=== PATIENT | female | born 1990 | race Caucasian/White ===

== ENCOUNTER 2018-01-06 09:08 | Emergency (ER) | payer MEDICAID ==
[2018-01-06 09:08] VITALS: BMI 22.6
[2018-01-06 10:05] VITALS: BP 107/68; PULSE 89; RESP 19; TEMP 98; O2SAT 100
--- NOTE | 2018-01-06 10:07 | ED PDOC ---
HPI: Skin/Bite Injury Time Seen by Provider: 01/06/18 09:10 Chief Complaint (Nursing): Abnormal Skin Integrity Chief Complaint (Provider): Abnormal Skin Integrity History Per: Patient History/Exam Limitations: no limitations Onset/Duration Of Symptoms: Days (x2) Current Symptoms Are (Timing): Still Present Additional Complaint(s): 27 year old female with medical history of Vcylg-Wkuuumduz-Sucpf syndrome and pulmonary embolism, presents to the emergency department with a complaint of right-sided groin lump ongoing for 2 days. Denied any groin pain, discharge, vomiting, fever, chills or malaise. Patient reported that she feels lump is getting bigger since onset. PMD: none provided Past Medical History Reviewed: Historical Data, Nursing Documentation, Vital Signs Vital Signs: Last Vital Signs Temp 98 F 01/06/18 10:02 Pulse 89 01/06/18 10:02 Resp 19 01/06/18 10:02 BP 107/68 01/06/18 10:02 Pulse Ox 100 01/06/18 12:17 - Medical History PMH: Pulmonary Embolism Other PMH: Kdgql-Huvbjzdfy-Sfjah syndrome - Surgical History Surgical History: Denies: No Surg Hx Other surgeries: tubal ligation - Family History Family History: States: Unknown Family Hx - Social History Current smoker - smoking cessation education provided: No Alcohol: None Drugs: Denies - Home Medications Home Medications: Ambulatory Orders Medication Instructions Recorded Rivaroxaban [Xarelto] 15 mg PO BID #28 tab 05/26/15 Rivaroxaban [Xarelto] 20 mg PO DAILY #0 tab 05/26/15 Fluticasone Propionate [Flonase] 1 spr RANI BID #1 bottle 06/18/15 Guaifenesin/Dextromethorphan 1 - 2 ter PO Q12 #20 ter 06/18/15 [Mucinex Dm 30 mg-600 mg] - Allergies Allergies/Adverse Reactions: Allergies Allergy/AdvReac Type Severity Reaction Status Date / Time No Known Allergies Allergy Verified 05/25/15 13:36 Review of Systems ROS Statement: Except As Marked, All Systems Reviewed And Found Negative Constitutional: Negative for: Fever, Chills, Malaise Gastrointestinal: Negative for: Vomiting Genitourinary Female: Positive for: Other (right-sided groin lump). Negative for: Pelvic Pain (or abscess) Physical Exam - Reviewed Nursing Documentation Reviewed: Yes Vital Signs Reviewed: Yes - Physical Exam Appears: Positive for: Well, Non-toxic, No Acute Distress Head Exam: Positive for: ATRAUMATIC, NORMAL INSPECTION, NORMOCEPHALIC Skin: Positive for: Normal Color Eye Exam: Positive for: Normal appearance ENT: Positive for: Normal ENT Inspection Neck: Positive for: Normal Cardiovascular/Chest: Positive for: Regular Rate, Rhythm, Chest Non Tender Respiratory: Positive for: Normal Breath Sounds. Negative for: Decreased Breath Sounds, Respiratory Distress Gastrointestinal/Abdominal: Positive for: Soft Extremity: Positive for: Normal ROM (upper/lower). Negative for: Pedal Edema ( bilateral), Calf Tenderness (bilateral) Lymphatic: Positive for: Adenopathy (tiny lymph node on right-sided groin). Negative for: Inguinal Node Tenderness (right-sided), Other (no surrounding erythema, fluctuance or edema) Neurologic/Psych: Positive for: Alert (x3), Oriented - ECG O2 Sat by Pulse Oximetry: 100 (RA) Pulse Ox Interpretation: Normal Medical Decision Making Medical Decision Making: Initial Impression: Inguinal lymphadenopathy Initial Plan: * Urine * BETA-HCG ____ Time: 1200 --Negative for . Time: 1206 --Upon provider reevaluation, patient is medically stable and requires no further treatment in the ED at this time. Patient will be discharged home. Counseling was provided and all questions were answered regarding diagnosis and need for follow up with PMD in 2 days for re-evaluation of lymph node. There is agreement to discharge plan. Return if symptoms persist or worsen. Clinical Impression: Lymph node enlargement Scribe Attestation: Documented by Kay Hong, acting as a scribe for Bozena Moreno MD. Provider Scribe Attestation: All medical record entries made by the Scribe were at my direction and personally dictated by me. I have reviewed the chart and agree that the record accurately reflects my personal performance of the history, physical exam, medical decision making, and the department course for this patient. I have also personally directed, reviewed, and agree with the discharge instructions and disposition. Disposition - Clinical Impression Clinical Impression: Lymph node enlargement - Patient ED Disposition Is Patient to be Admitted: No Counseled Patient/Family Regarding: Studies Performed, Diagnosis, Need For Followup - Disposition Disposition: Routine/Home Disposition Time: 11:06 Condition: IMPROVED Additional Instructions: follow up with your primary doctor in 2 days for reevaluation for lymph node evaluation/workup versus lipoma return to the ED immediately for any fever or any concerning or worsening symptoms Forms: [employer] (Tanzanian)
== END 2018-01-06 12:13 | disposition home or self-care (01) ==
LOC: H.ER 09:08
DX: R59.9 Enlarged lymph nodes, unspecified (principal)

== ENCOUNTER 2018-03-21 18:06 | Emergency (ER) | payer MEDICAID ==
[2018-03-21 18:06] VITALS: BMI 22.6
[2018-03-21] MEDS ORDERED: Iohexol 240 (50 ml) PO ONE (19:16)
[2018-03-21] MEDS ORDERED: Sodium Chloride 0.9% 1,000 ML IV STA (19:18)
[2018-03-21 19:39] LABS: BASO % 0.5 % (0.0-2.0); EOS # 0.1 K/uL (0.0-0.7); EOS % 1.4 % (0.0-4.0); LYMPH # 1.5 K/uL (1.0-4.3); LYMPH % 29.3 % (20.0-40.0); MEAN CELL VOLUME 91.3 fl (81.0-99.0); MEAN CORPUSCULAR HEMOGLOBIN 32.3 pg (27.0-31.0); MEAN CORPUSCULAR HGB CONC 35.4 g/dL (33.0-37.0); MONO # 0.8 K/uL (0.0-0.8); NEUT # 2.8 K/uL (1.8-7.0); NEUT % 53.7 % (50.0-75.0); RBC 4.34 Mil/uL (3.80-5.20); RED CELL DISTRIBUTION WIDTH 12.8 % (11.5-14.5); WHITE BLOOD COUNT 5.1 K/uL (4.8-10.8)
[2018-03-21 19:52] LABS: ALB/GLOB RATIO 1.3 (1.0-2.1); ALBUMIN 4.1 g/dL (3.5-5.0); ALT/SGPT 43 U/L (9-52); AST/SGOT 37 U/L (14-36); BLOOD UREA NITROGEN 11 mg/dl (7-17); CALCIUM 8.7 mg/dL (8.4-10.2); GFR AFRICAN-AMERICAN > 60; GFR NON-AFRICAN AMERICAN > 60
[2018-03-21 20:38] LABS: MONO % 15.1 % (0.0-10.0)
--- NOTE | 2018-03-21 21:09 | ED PDOC ---
HPI: Abdomen Time Seen by Provider: 03/21/18 19:14 Chief Complaint (Nursing): Abdominal Pain Chief Complaint (Provider): Abdominal pain, RLQ History Per: Patient Past Medical History Vital Signs: Last Vital Signs Temp 98.0 F 03/21/18 18:15 Pulse 98 H 03/21/18 18:15 Resp 16 03/21/18 18:15 BP 134/86 03/21/18 18:15 Pulse Ox 99 03/21/18 18:15 - Medical History PMH: Pulmonary Embolism - Family History Family History: States: Unknown Family Hx - Home Medications Home Medications: Ambulatory Orders Medication Instructions Recorded Rivaroxaban [Xarelto] 15 mg PO BID #28 tab 05/26/15 Rivaroxaban [Xarelto] 20 mg PO DAILY #0 tab 05/26/15 Fluticasone Propionate [Flonase] 1 spr RANI BID #1 bottle 06/18/15 Guaifenesin/Dextromethorphan 1 - 2 ter PO Q12 #20 ter 06/18/15 [Mucinex Dm 30 mg-600 mg] - Allergies Allergies/Adverse Reactions: Allergies Allergy/AdvReac Type Severity Reaction Status Date / Time No Known Allergies Allergy Verified 05/25/15 13:36 - Laboratory Results Result Diagrams: 03/21/18 19:36 03/21/18 19:36 - ECG O2 Sat by Pulse Oximetry: 99 Medical Decision Making Medical Decision Making: Endorsed pending CT. Disposition - Disposition Condition: STABLE
[2018-03-21 21:10] LABS: SQUAMOUS EPITHIAL < 1 /hpf (0-5); URINE BACTERIA RARE (<OCC); URINE BILIRUBIN NEGATIVE (NEGATIVE); URINE BLOOD NEGATIVE (NEGATIVE); URINE CLARITY CLEAR (Clear); URINE COLOR STRAW (YELLOW); URINE GLUCOSE (UA) NEG (Normal); URINE LEUKOCYTE ESTERASE NEG Leu/uL (Negative); URINE PROTEIN NEGATIVE (NEGATIVE); URINE UROBILINOGEN 0.2-1.0 mg/dL (0.2-1.0)
[2018-03-21] MEDS ORDERED: Iohexol 300 100 ML IJ ONE (22:08)
[2018-03-21] MEDS ORDERED: Sodium Chloride 0.9% 50 ML IV ONE (22:09)
--- NOTE | 2018-03-21 23:25 | CT ---
EXAM: CT Abdomen and Pelvis With Intravenous Contrast EXAM DATE/TIME: 03/21/2018 7:17 PM CLINICAL HISTORY: 27 years old, female; Pain; Abdominal pain; Localized; Right lower quadrant (rlq); Prior surgery; Surgery date: 6+ months; Surgery type: Tubal ligation; Additional info: Abdominal pain, central radiating to rlq TECHNIQUE: Axial computed tomography images of the abdomen and pelvis with intravenous contrast. All CT scans at this facility use one or more dose reduction techniques, viz.: automated exposure control; ma/kV adjustment per patient size (including targeted exams where dose is matched to indication; i.e. head); or iterative reconstruction technique. Coronal and sagittal reformatted images were created and reviewed. CONTRAST: 90 mL of omnipaque 300 administered intravenously. COMPARISON: No relevant prior studies available. FINDINGS: The liver, spleen, pancreas are normal. No gallstones. There is a right extrarenal pelvis. Questionable trace right perinephric stranding. There is under distention of the urinary bladder limiting accurate evaluation for wall thickness. Correlation with urinalysis if there is concern for cystitis. The bowel appears normal. A normal appendix is identified images 101 through 107, coronal images 35 through 40. Slight prominence of the lower uterine segment/cervix. Recommend ensuring patient is up to date on Pap smears. Bilateral ovarian follicles are present Prominent vessels in the pelvis greater on the left raising the possibility of pelvic congestion syndrome. Small amount of free fluid in the pelvis. No aortic aneurysm or dissection. IMPRESSION: Questionable trace right perinephric stranding. Recommend correlation with urinalysis to exclude acute infectious/inflammatory process if clinically indicated.
--- NOTE | 2018-03-22 00:25 | ED PDOC ---
- Laboratory Results Result Diagrams: 03/21/18 19:36 03/21/18 19:36 - ECG O2 Sat by Pulse Oximetry: 99 Medical Decision Making Medical Decision Making: Case endorsed to me from FELISA Teresa pending labs, CT at 2100. CBC wnl CMP wnl Uhcg (-) UA (-) CT A/P : FINDINGS: The liver, spleen, pancreas are normal. No gallstones. There is a right extrarenal pelvis. Questionable trace right perinephric stranding. There is under distention of the urinary bladder limiting accurate evaluation for wall thickness. Correlation with urinalysis if there is concern for cystitis. The bowel appears normal. A normal appendix is identified images 101 through 107, coronal images 35 through 40. Slight prominence of the lower uterine segment/cervix. Recommend ensuring patient is up to date on Pap smears. Bilateral ovarian follicles are present Prominent vessels in the pelvis greater on the left raising the possibility of pelvic congestion syndrome. Small amount of free fluid in the pelvis. No aortic aneurysm or dissection. IMPRESSION: Questionable trace right perinephric stranding. Recommend correlation with urinalysis to exclude acute infectious/inflammatory process if clinically indicated. Dictated By: Susana Tariq MD Dictated Date/Time: 03/21/18 1601 On re-evaluation, patient reports improvement of symptoms, denies any abdominal pain, states that she is now having diarrhea. She states that her symptoms started after she went out to eat, at first with some nausea and vague abdominal pain and now with diarrhea. On exam, patient remains AAOx3, in no acute distress. Lungs clear to auscultation, cardiac RRR, abdomen soft, non- tender with no guarding, repeat neuro exam shows no focal findings. VS T 98.3 P 64 BP 102/57 R 18 O2 sat 100%RA. Diagnostic results d/w the patient in great detail. Diagnosis of gastroenteritis d/w the patient. Based on history, exam and diagnostic results, plan will be for outpatient follow up. Patient instructed to follow-up with pmd in 1-2 days without fail. Advised to take medication as prescribed. Return to the emergency room at any time for any new or worsening symptoms. Patient states she fully agrees with and understands discharge instructions. States that she agrees with the plan and disposition. Verbalized and repeated discharge instructions and plan. I have given the patient opportunity to ask any additional questions. Disposition Counseled Patient/Family Regarding: Studies Performed, Diagnosis, Need For Followup, Rx Given - Clinical Impression Clinical Impression: Acute gastroenteritis, Abdominal pain - POA Present On Arrival: None - Disposition Disposition: Routine/Home Disposition Time: 01:00 Condition: IMPROVED Additional Instructions: Thank you for letting us take care of you today. You were treated for abdominal pain, acute gastroenteritis. The emergency medical care you received today was directed at your acute symptoms. If you were prescribed any medication, please fill it and take as directed. It may take several days for your symptoms to resolve. Return to the Emergency Department if your symptoms worsen, do not improve, or if you have any other problems. Please contact your doctor in 2 days for re-evaluation and follow up / or call one of the physicians/clinics you have been referred to that are listed on the Patient Visit Information form that is included in your discharge packet. Bring any paperwork you were given at discharge with you along with any medications you are taking to your follow up visit. Our treatment cannot replace ongoing medical care by a primary care provider (PCP) outside of the emergency department. Thank you for allowing the [facility] team to be part of your care today. 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
[2018-03-22 01:31] VITALS: BP 102/57; PULSE 64; RESP 18; TEMP 98.3
[2018-03-22 04:05] VITALS: O2SAT 99
== END 2018-03-22 01:30 | disposition home or self-care (01) ==
LOC: H.ER 18:06
DX: K52.9 Noninfective gastroenteritis and colitis, unspecified (principal); Z86.711 Personal history of pulmonary embolism
CPT/HCPCS: 74177; 80053; 81003; 81025; 85025; 87086; 96360; 99283; J7040; Q9966; Q9967

== ENCOUNTER 2018-12-26 07:47 | Emergency (ER) | payer MEDICAID ==
[2018-12-26 07:49] VITALS: BMI 23.3
[2018-12-26 07:51] VITALS: TEMP 98.4
--- NOTE | 2018-12-26 09:23 | ED PDOC ---
HPI: CCC, URI, Sore Throat Time Seen by Provider: 12/26/18 08:31 Chief Complaint (Nursing): ENT Problem Chief Complaint (Provider): Throat pain History Per: Patient History/Exam Limitations: no limitations Current Symptoms Are (Timing): Still Present Location Of Pain: Throat Associated Symptoms: Sore Throat Ear Symptoms: Right: Ear Pain Additional History Per: Patient Additional Complaint(s): 28yo female otherwise well, comes to ER with complaints of sore throat x 2 days. Patient also reports persistent cough for the past month. She reports overnight, she had pain to the right side of the throat, radiating to her right ear. Did not take medication for pain. No additional complaints. PMD: Dr. Briggs Past Medical History Reviewed: Historical Data, Nursing Documentation, Vital Signs Vital Signs: Last Vital Signs Temp 98.4 F 12/26/18 07:49 Pulse 91 H 12/26/18 07:49 Resp 16 12/26/18 07:49 BP 108/69 12/26/18 07:49 Pulse Ox 98 12/26/18 07:49 - Medical History PMH: No Chronic Diseases, Pulmonary Embolism - Surgical History Surgical History: No Surg Hx - Family History Family History: States: No Known Family Hx - Home Medications Home Medications: Ambulatory Orders Medication Instructions Recorded Rivaroxaban [Xarelto] 15 mg PO BID #28 tab 05/26/15 Rivaroxaban [Xarelto] 20 mg PO DAILY #0 tab 05/26/15 Fluticasone Propionate [Flonase] 1 spr RANI BID #1 bottle 06/18/15 Guaifenesin/Dextromethorphan 1 - 2 ter PO Q12 #20 ter 06/18/15 [Mucinex Dm 30 mg-600 mg] Dicyclomine [Bentyl] 20 mg PO QID PRN #20 tab 03/22/18 Ondansetron ODT [Zofran ODT] 4 mg PO DAILY PRN #20 odt 03/22/18 - Allergies Allergies/Adverse Reactions: Allergies Allergy/AdvReac Type Severity Reaction Status Date / Time No Known Allergies Allergy Verified 12/26/18 08:03 Review of Systems ROS Statement: Except As Marked, All Systems Reviewed And Found Negative Constitutional: Positive for: Fever ENT: Positive for: Ear Pain, Throat Pain Respiratory: Positive for: Cough Physical Exam - Reviewed Nursing Documentation Reviewed: Yes Vital Signs Reviewed: Yes - Physical Exam Appears: Positive for: Non-toxic, No Acute Distress Head Exam: Positive for: ATRAUMATIC, NORMAL INSPECTION, NORMOCEPHALIC Skin: Positive for: Normal Color, Warm, DRY Eye Exam: Positive for: Normal appearance, EOMI, PERRL ENT: Positive for: TM Is/Are (clear bilaterally). Negative for: Pharyngeal Erythema, Tonsillar Exudate, Tonsillar Swelling Neck: Positive for: Normal, Painless ROM, Supple Cardiovascular/Chest: Positive for: Regular Rate, Rhythm Respiratory: Positive for: Normal Breath Sounds. Negative for: Rales, Rhonchi, Wheezing Neurologic/Psych: Positive for: Alert, Oriented. Negative for: Motor/Sensory Deficits - ECG O2 Sat by Pulse Oximetry: 98 (RA) Pulse Ox Interpretation: Normal Medical Decision Making Medical Decision Making: Patient with throat pain; no signs of infection on exam Vital signs stable Patient given Decadron IM and Motrin PO. 0928 On reassessment, patient reports improvement of symptoms. Stable for discharge; instructed to take medications as prescribed. Patient instructed to follow up with PMD in 2-3 days. Return precautions given. Scribe Attestation: Documented by Mary Larios acting as a scribe for Gregoria Jamison MD Provider Attestation: All medical record entries made by the Scribe were at my direction and personally dictated by me. I have reviewed the chart and agree that the record accurately reflects my personal performance of the history, physical exam, medical decision making, and the department course for this patient. I have also personally directed, reviewed, and agree with the discharge instructions and disposition. Disposition - Clinical Impression Clinical Impression: Throat pain in adult - Disposition Disposition: Routine/Home Disposition Time: 09:28 Condition: STABLE Additional Instructions: Take Motrin or Tylenol for pain. Follow up with primary medical doctor if symptoms note improved in one week. Instructions: Sore Throat, Adult (DC) Forms: [employer] (Kittitian), [facility] ED School/Work Excuse Print Language: CYPRIOT
[2018-12-26 10:05] VITALS: BP 121/76; PULSE 84; RESP 15
[2018-12-29 18:36] VITALS: O2SAT 98
== END 2018-12-26 10:04 | disposition home or self-care (01) ==
LOC: H.ER 07:47
DX: J02.9 Acute pharyngitis, unspecified (principal)
CPT/HCPCS: 81025; 96372; 99283; J1100